=== PATIENT | female | born 1980 | race Caucasian/White ===

== ENCOUNTER → 2019-07-06 09:41 | Outpatient (BNVA) | payer OTHER, SELFPAY | PROVIDERS: Family Provider Family Medicine; PCP Family Medicine; Referring Provider Obstetrics & Gynecology; Visit Provider Obstetrics & Gynecology | DX: R39.9 Unspecified symptoms and signs involving the genitourinary system (principal) | CPT/HCPCS: 80053; 81000 ==

== ENCOUNTER 2020-05-06 07:45 | Outpatient (CLI) | payer OTHER, SELFPAY ==
--- NOTE | 2020-05-06 07:51 | US_ITS ---
WS: [id number] ULTRASOUND ABDOMEN LIMITED CLINICAL INFORMATION: RUQ ABDOMINAL PAIN/NAUSEA COMPARISON: None. FINDINGS: Liver Size: Normal. Craniocaudal length: 15.9 cm. Echogenicity: Normal. Surface nodularity: None. Mass (size and location): None. Bile ducts Intrahepatic ducts: Normal. Common bile duct diameter: 0.2 cm. Gallbladder Normal. Gallstones: None. Gallbladder sludge: None. Gallbladder wall thickening: None. Pericholecystic fluid: None. Sonographic Gould sign: Absent. Pancreas Normal as visualized. Right kidney: Normal. Hydronephrosis: None. Size: 10.8 cm x 3.9 cm x 4.3 cm. Abdominal aorta and IVC Visualized portions are normal. Ascites: None. US/US gall bladder [id number] IMPRESSION: Normal abdominal ultrasound
== END 2020-05-06 07:46 | disposition home or self-care (01) ==
LOC: US 07:48
PROVIDERS: PCP Family Medicine; Visit Provider Family Medicine
DX: R10.11 Right upper quadrant pain (principal); R11.0 Nausea
CPT/HCPCS: 76705

== ENCOUNTER 2020-06-05 07:48 | Outpatient (CLI) | payer OTHER, SELFPAY ==
--- NOTE | 2020-06-05 07:52 | NM_ITS ---
WS: [id number] NUCLEAR MEDICINE HIDA SCAN CLINICAL INFORMATION: ABD PAIN, RUQ TECHNIQUE: Following intravenous administration of 7.7 mCi of technetium 99m mebrofenin, images of th e abdomen were obtained over the course of 60 minutes. Next, gallbladder ejection fraction was determ ined by obtaining preprandial and one-hour postprandial images of the gallbladder following oral edgar stion of Ensure. COMPARISON: Ultrasound gallbladder May 06, 2020 FINDINGS: Normal hepatic uptake at 5 minutes. Gallbladder visualized by 20 minutes. Normal common bile duct and small bowel activity. No evidence of acute cholecystitis or choledocholithiasis. Gallbladder ejection fraction 78% within normal limits. No evidence of chronic cholecystitis. NM/NM hepatobiliary w phar* [id number] IMPRESSION: 1. No evidence of acute or chronic cholecystitis. 2. Gallbladder ejection fraction 78% within normal limits.
== END 2020-06-05 07:49 | disposition home or self-care (01) ==
PROVIDERS: PCP Family Medicine; Visit Provider Family Medicine
DX: R10.11 Right upper quadrant pain (principal)
CPT/HCPCS: 78227; A9537

== ENCOUNTER → 2020-07-16 16:06 | Outpatient (BNVA) | payer OTHER, SELFPAY | PROVIDERS: PCP Family Medicine; Visit Provider Obstetrics & Gynecology | DX: N39.3 Stress incontinence (female) (male) (principal); Z11.52 Encounter for screening for COVID-19 | CPT/HCPCS: 87635 ==

== ENCOUNTER → 2020-07-18 15:40 | Outpatient (BNVA) | payer OTHER, SELFPAY | PROVIDERS: PCP Family Medicine; Visit Provider Obstetrics & Gynecology | DX: N39.3 Stress incontinence (female) (male) (principal) | CPT/HCPCS: 87086 ==

== ENCOUNTER 2020-07-22 06:14 | Day surgery (SDC) | payer OTHER, SELFPAY ==
[2020-07-21 07:28] VITALS: BMI 26.6
[2020-07-22] VITALS (7 sets, daily range): BP systolic 121–148; BP diastolic 85–100; PULSE 63–83; RESP 17–20; TEMP 36.1–36.8; O2SAT 96–100
[2020-07-22] MEDS: sodium chloride 0.9% 1,000 ML 30 ML IV (06:54)
[2020-07-22] MEDS: ketorolac 30 mg/mL INJ IVP (06:55)
[2020-07-22] MEDS: phenazopyridine 100 mg Tablet 200 MG PO (06:55)
[2020-07-22] MEDS: gabapentin 300 mg Capsule PO (06:55)
--- NOTE | 2020-07-22 07:02 | P.HPUD_ITS ---
Surgery/Procedure H&P Update DATE OF PROCEDURE: July 22, 2020 DATE H&P PERFORMED: 07/18/20 H&P UPDATE INFORMATION: I have reviewed H&P completed within last 30 days, I have examined patient prior to procedure, No changes to prior documentation and [place] [facility] date indicated PREOP DIAGNOSIS: Stress urinary incontinence PLANNED PROCEDURE: Operation Date: 07/22/20 07:55 Proposed Procedures p Urethral single incision sling [id number] r32(Not Applicable) - Yousuf Talbot MD s Cystoscopy(Not Applicable) - Yousuf Talbot MD
--- NOTE | 2020-07-22 07:08 | ANES.PREANE2 ---
Pre-Anesthetic Assessment Pre-Anesthetic Assessment: Height/Weight: Height 1.63 m Weight 70.307 kg Temp Pulse Resp BP Pulse Ox 98.2 F 75 18 143/96 97 07/22/20 06:35 07/22/20 06:35 07/22/20 06:35 07/22/20 06:35 07/22/20 06:35 Preop Diagnosis: Stress urinary incontinence Proposed Procedure: Operation Date: 07/22/20 07:55 Proposed Procedures p Urethral single incision sling [id number] r32(Not Applicable) - Yousuf Talbot MD s Cystoscopy(Not Applicable) - Yousuf Talbot MD Was Beta Ghazala taken within 24 hours: N/A Was Clonidine taken within 24 hours: N/A Last intake: Intake Last Liquid Date 07/21/20 Last Liquid Time 19:00 Last Solid Date 07/21/20 Last Solid Time 19:00 Social: Social History: No alcohol and No tobacco Exam: Pre-Anes Outpt Exam: alert and oriented x 3 Airway: Submandibular: WNL Cervical ROM: WNL MP: 2 History/ROS: No significant complaints Pulmonary: Pulmonary: None reported CV/HEM: CV/HEM: None reported : : None reported Hepatic: Hepatic: None reported GI: GI: None reported Metabolic: Metabolic: None reported Musc/skel: Musc/skel: None reported Neuropsych: Neuropsych: None reported Anesthetic Plan: ASA status: 1 Meds/Allergies Current Medications: Current Medications Generic Name Dose Route Start Last Admin Trade Name Freq PRN Reason Stop Dose Admin Sodium Chloride 1,000 mls @ 30 ml s/hr 07/22/20 06:30 07/22/20 06:54 Sodium Chloride 0.9% IV 07/23/20 06:29 30 mls/hr .Q24H GALINA Administration PFSH Anesthesia PFSH: Medical History Endometriosis of pelvis No pertinent past medical history neghx: htn,dm,thyroid,dvt/pe Surgical History History of tonsillectomy and adenoidectomy (~1990) Hx of hysterectomy (~12/14/16) TVH with bilateral salpingectomy, Eckert's culdoplasty (vaginal enterocele repair). Dx: Menorrhagia, Dysmenorrhea. [place] [facility] [place]. Family History Mother Hypertension Hypercholesteremia Thyroid disease Grandmother Hypertension Maternal Heart disease Maternal Hypercholesteremia Maternal Breast cancer Paternal age of dx--70's Uterine cancer Paternal-- unknown dx age Family/Other Diabetes Maternal Uncle Breast cancer Paternal Aunt age of dx-- 50 Stroke Maternal great grandfather Denies family history of Colon cancer Ovarian cancer Clotting disorder Bleeding disorder Social History (Updated 07/18/20 @ 16:04 by Yousuf Talbot MD) Smoking and tobacco status: never smoked Alcohol intake: never Additional social history: - Tobacco use: Never Alcohol use: Never Drug use: Never Data Anesthesia Cardiac Studies: No Data to Display
[2020-07-22] MEDS: vasopressin 20 unit/mL INJ 4 UNIT INJECTION (08:15)
--- NOTE | 2020-07-22 08:37 | PM.OP ---
Operative Report Date of procedure: July 22, 2020 Pre-op Diagnosis: Stress urinary incontinence Post-op Diagnosis: Stress urinary incontinence Procedure Done: Single incision suburethral sling, Cystoscopy Specimens removed/disposition: None Surgeon: Yousuf Talbot Civil Geotechnical Engineer: None Anesthesia: General Estimated blood loss (mL): 20 IV fluids (mL): 600 Complications: None Findings: First to second-degree cystocele under anesthesia. No bladder masses noted. Brief History: Patient is a 39-year-old female 2, para 2 who is status post hysterectomy. She presented to the office on 04/14/2020 complaining of leaking of urine that had been present for approximately 4 years, but have been worsening over the last year. She complained of leaking with coughing, sneezing, laughing, exercise, etc. She reported rare urgency symptoms. On exam, she had a first-degree cystocele with good vaginal vault support. Hypermobility of the urethra was noted. As result urethral sling was recommended and she is presenting for that at this time. Procedure: Patient was taken to the operating room where general anesthesia was obtained. She was prepped and draped in usual sterile fashion dorsal supine position with legs in Abiodun style stirrups. Sequential compression boots were placed prior to starting the case. Michelle catheter was inserted. Exam under anesthesia was performed and she was noted to have a first to second-degree cystocele under anesthesia with good vaginal vault support. The urethrovesical junction was identified and the vaginal mucosa grasped with an Allis clamp. The periurethral area was injected with dilute Pitressin solution. An incision was made with the knife under the urethra parallel to it. The vaginal mucosa was dissected towards the pubic rami bilaterally. Using a Solyx single incision sling, the sling was placed at the mid urethral level and passed behind the pubic rami at a 45 degree angle to the urethra. This was repeated on the contralateral side in a similar fashion. The sling was tensioned until it was just against the periurethral tissue, providing minimal elevation to the urethra. Michelle catheter was removed. Cystoscopy was performed. No sling material was found within the urethra or bladder. No bladder masses were noted. Both ureters were noted to be effluxing urine well. Bladder was then drained and refilled with approximately 150 mL of fluid. Cystoscope was then removed, leaving the fluid in the bladder. The vaginal mucosa was closed in a running locking fashion using 3-0 Vicryl suture. Vagina was packed with 1 inch Nu Gauze. Patient tolerated procedures well. Sponge and needle counts were correct. Drains: None Postoperative status: Patient was transferred recovery room in satisfactory condition. She is to void prior to discharge. If she is unable to void adequately, she will go home either with self-catheterization or with Michelle catheter. Disposition: Discharged home. Postoperative appointment: Patient to follow-up in the office on 08/04/2020 Discharge medications: Tramadol 50 mg, 1 to 2 tablets every 6 hours as needed for pain, #10, 0 refills May resume usual home medications.
--- NOTE | 2020-07-22 10:22 | SUR.PHASEII ---
1000: PATIENT AMBULATED TO BATHROOM, REMOVED PACKING HERSELF, WAS ABLE TO VOID. BLADDER SCANNER SHOWED APPROX 70ML URINE STILL IN BLADDER. DR GARDINER NOTIFIED, ORDER RECEIVED TO DC PATIENT HOME WITH NO CATHETER AND NO SELF CATH ORDER.
--- NOTE | 2020-07-22 13:44 | ANE.PACU2 ---
Inpatient post-anesthesia follow up: Airway intact: Yes Vital signs: Temperature 97.0 F Pulse Rate 63 Respiratory Rate 18 Blood Pressure 148/97 Pulse Oximetry 97 Oxygen Delivery Me thod Room Air Oxygen Flow Rate Fraction of Inspir ed Oxygen Hydration adequate: Yes Nausea and vomiting: No Pain level: 3 Mental status: Baseline
== END 2020-07-22 10:25 | disposition home or self-care (01) ==
PROVIDERS: PCP Family Medicine; Visit Provider Obstetrics & Gynecology
PROC: (CPT 57288; principal; 2020-07-22 07:55)
PROC: 0TJB8ZZ Inspection of Bladder, Via Natural or Artificial Opening Endoscopic (ICD-10-PCS; CPT 52000; 2020-07-22 07:55)
DX: N39.3 Stress incontinence (female) (male) (principal); Z82.49 Family history of ischemic heart disease and other diseases of the circulatory system
CPT/HCPCS: 57288; 96365; C1771; J0690; J1100; J1885; J2405; J2704; J3010; J3490; J7030

== ENCOUNTER → 2020-08-22 00:01 | Outpatient (BNVA) | payer OTHER, SELFPAY | PROVIDERS: PCP Family Medicine; Visit Provider Obstetrics & Gynecology | DX: N39.0 Urinary tract infection, site not specified (principal); R39.9 Unspecified symptoms and signs involving the genitourinary system | CPT/HCPCS: 81000; 87077; 87086; 87184 ==

== ENCOUNTER → 2020-10-10 16:03 | Outpatient (BNVA) | payer OTHER, SELFPAY | PROVIDERS: PCP Family Medicine; Visit Provider Nurse Practitioner Women's Health | DX: R30.0 Dysuria (principal); N39.3 Stress incontinence (female) (male) | CPT/HCPCS: 81000; 87086 ==

== ENCOUNTER → 2021-10-29 14:55 | Outpatient (BNVA) | payer OTHER, SELFPAY | PROVIDERS: PCP Family Medicine; Visit Provider Nurse Practitioner Women's Health | DX: R39.9 Unspecified symptoms and signs involving the genitourinary system (principal) | CPT/HCPCS: 81000; 87086 ==

== ENCOUNTER → 2021-11-13 08:38 | Outpatient (BNVA) | payer OTHER, SELFPAY | PROVIDERS: PCP Family Medicine; Visit Provider Urology | DX: R31.9 Hematuria, unspecified (principal) | CPT/HCPCS: 81003; 87086 ==

== ENCOUNTER → 2022-01-21 09:13 | Outpatient (BNVA) | payer OTHER, SELFPAY | PROVIDERS: PCP Family Medicine; Visit Provider Nurse Practitioner Women's Health | DX: R58 Hemorrhage, not elsewhere classified (principal); R31.9 Hematuria, unspecified | CPT/HCPCS: 81000; 87086 ==

== ENCOUNTER → 2022-02-05 15:52 | Outpatient (BNVA) | payer OTHER, SELFPAY | PROVIDERS: PCP Family Medicine; Visit Provider Nurse Practitioner Women's Health | DX: Z98.890 Other specified postprocedural states (principal); O46.90 Antepartum hemorrhage, unspecified, unspecified trimester | CPT/HCPCS: 76830 ==

== ENCOUNTER 2022-05-12 07:50 | Outpatient (CLI) | payer OTHER, SELFPAY ==
--- NOTE | 2022-05-12 07:57 | MM_ITS ---
WS: [id number] BILATERAL SCREENING DIGITAL TOMOSYNTHESIS MAMMOGRAM WITH CAD HISTORY: Screening exam. COMPARISON: None available. Bilateral CC and MLO views with tomosynthesis and synthetic mammography submitted. Computer aided det ection analyzed. Breast composition: The breasts are heterogeneously dense, which may obscure small masses. No suspici ous masses, microcalcifications or architectural distortion. MM/[id number] IMPRESSION: BI-RADS: 1-Negative FOLLOW UP: 1 Year Follow-up
== END 2022-05-12 07:51 | disposition home or self-care (01) ==
PROVIDERS: PCP Family Medicine; Visit Provider Nurse Practitioner Women's Health
DX: Z12.31 Encounter for screening mammogram for malignant neoplasm of breast (principal)
CPT/HCPCS: 77063; 77067

== ENCOUNTER 2023-05-03 15:45 | Outpatient (CLI) | payer OTHER, SELFPAY ==
--- NOTE | 2023-05-03 15:50 | XRR_ITS ---
PROCEDURE INFORMATION: Exam: XR Abdomen Exam date and time: 05/03/2023 4:02 PM Age: 42 years old Clinical indication: Pain; Other: Left flank; Additional info: Kidney stone TECHNIQUE: Imaging protocol: Radiologic exam of the abdomen. Views: Frontal supine view of the abdomen. 1 View. COMPARISON: NM hepatobiliary w phar* [id number] 06/05/2020 7:52 AM FINDINGS: Gastrointestinal tract: Nonobstructive bowel gas pattern. No gross evidence of free air or pneumatosis. Bones/joints: No evidence of acute osseous abnormality. There is lucency in the region of the left L2 transverse process, possibly sequela of remote trauma. XR/XR [id number] IMPRESSION: 1. No convincing evidence of a radiopaque renal/ureteral stone.
[2023-05-03 16:30] LABS: Add Urine Microscopic? YES; Bilirubin Urine Neg (Negative); Blood Urine 3+ (Negative); Glucose Urine UA Norm (Normal); Ketones Urine Negative (Negative); Leukocyte Esterase Urine Negative (Negative); Nitrate Urine Negative (Negative); Protein Urine Trace (Negative); Specific Gravity, Urine 1.025 (1.005-1.030); Urine Appearance Hazy (CLEAR); Urine Color Yellow (Yellow); Urobilinogen Urine 1 mg/dL (Negative); pH Urine 6 (5-7)
[2023-05-03 17:22] LABS: Add Urine Culture? Yes; Amorphous Sediment Urine TRACE /hpf; Bacteria Urine TRACE /hpf; Fine Granular Casts Urine 0-4 /lpf; Mucus Urine 1+ /hpf; RBC Urine 40-50 /hpf (0-2); Squamous Epithelial Cell Urine 0-4 /hpf (0-5); WBC Urine 0-4 /hpf (0-5)
== END 2023-05-03 15:46 | disposition home or self-care (01) ==
LOC: RAD 15:47
PROVIDERS: PCP Family Medicine; Visit Provider Nurse Practitioner Women's Health
DX: N20.0 Calculus of kidney (principal); R10.9 Unspecified abdominal pain
CPT/HCPCS: 74018; 81001; 87086

== ENCOUNTER 2023-05-13 14:45 | Outpatient (CLI) | payer OTHER, SELFPAY ==
--- NOTE | 2023-05-13 14:49 | MM_ITS ---
WS: [id number] BILATERAL 3D TOMOSYNTHESIS DIGITAL SCREENING MAMMOGRAPHY WITH CAD CLINICAL INFORMATION: Z12.31 - Encounter for screening mammogram for malignant ... HISTORY: Screening mammogram. No current complaints. COMPARISON: 2022 TECHNIQUE: Bilateral CC and MLO views. FINDINGS: The breasts are composed of heterogeneous fibroglandular density tissue, which can limit the detectio n of small underlying mass lesions. No suspicious mass, asymmetry, calcifications, or architectural d istortion. No evidence of malignancy. IMPRESSION: MM/[place] [id number] BI-RADS: 1-Negative FOLLOW UP: 1 Year Follow-up Recommend return to annual screening mammography.
== END 2023-05-13 14:46 | disposition home or self-care (01) ==
LOC: RAD 14:46
PROVIDERS: PCP Family Medicine; Visit Provider Nurse Practitioner Women's Health
DX: Z12.31 Encounter for screening mammogram for malignant neoplasm of breast (principal); R92.323 Mammographic fibroglandular density, bilateral breasts; R92.333 Mammographic heterogeneous density, bilateral breasts
CPT/HCPCS: 77063; 77067

== ENCOUNTER 2023-05-24 10:06 | Outpatient (CLI) | payer OTHER, SELFPAY ==
[2023-06-01 14:53] LABS: Stone Source LEFT KIDNEY
== END 2023-05-24 10:07 | disposition home or self-care (01) ==
LOC: LAB 10:07
PROVIDERS: PCP Family Medicine; Visit Provider Family Medicine
DX: N20.0 Calculus of kidney (principal)
CPT/HCPCS: 82365; 88300

== ENCOUNTER 2024-05-15 08:06 | Outpatient (CLI) | payer OTHER, SELFPAY ==
--- NOTE | 2024-05-15 08:07 | MM_ITS ---
WS: [id number] BILATERAL 3D TOMOSYNTHESIS DIGITAL SCREENING MAMMOGRAPHY WITH CAD CLINICAL INFORMATION: SCREENING HISTORY: Screening mammogram. No current complaints. COMPARISON: 2023 TECHNIQUE: Bilateral CC and MLO views. FINDINGS: The breasts are composed of heterogeneous fibroglandular density tissue, which can limit the detection of small underlying mass lesions. No suspicious mass, asymmetry, calcifications, or architectural distortion. No evidence of malignancy. MM/MM scr tomosynthesis [id number] IMPRESSION: DENSITY: The breasts are heterogeneously dense, which may obscure small masses. BI-RADS: 1 - Negative FOLLOW UP: 1 Year Follow-up Recommend return to annual screening mammography.
== END 2024-05-15 08:07 | disposition home or self-care (01) ==
PROVIDERS: PCP Family Medicine; Visit Provider Nurse Practitioner Women's Health
DX: Z12.31 Encounter for screening mammogram for malignant neoplasm of breast (principal); R92.333 Mammographic heterogeneous density, bilateral breasts; R92.323 Mammographic fibroglandular density, bilateral breasts
CPT/HCPCS: 77063; 77067